=== PATIENT | female | born 1955 | race Caucasian/White ===

== ENCOUNTER 2018-11-20 19:09 | Emergency (ER) | payer MEDICAID, OTHER ==
[~2018-11-20] VITALS: Wt 65.5 kg
[~2018-11-20 19:09] MED LIST: ALBU8.5H8 INH; CYCL10TA7 PO; GUAI118L94 PO; HYDR-3498 PO; IBUP-1542 PO; SODI44SP11 NASAL
[2018-11-20] MEDS ORDERED: LORAZEPAM 1 MG TAB PO ONE (20:00)
--- NOTE | 2018-11-20 20:20 | ERD ---
ER Documentation Chief Complaint Chief Complaint Body numbness HPI This is a 63-year-old female who took a nap this afternoon when she woke about 10 minutes later she started feeling hot and she said her face felt very hot and burning. Then she states that her entire body started tingling. She said that she felt like she was going to . The son is in the room and said that she was having hand shaking and tremors with some hyperventilation. She has no focal neurological complaints. Denies any focal weakness. ROS All systems reviewed and are negative except as per history of present illness. Medications Home Meds Active Scripts Ibuprofen* (Motrin*) 600 Mg Tab, 600 MG PO Q6, #30 TAB Prov:ELÍAS GOETZ NP 11/04/15 Hydrocodone Bit-Acetaminophen* ([place]*) 5-325 Mg Tab, 1 TAB PO Q6 PRN for PAIN, #7 TAB Prov:ELÍAS GOETZ NP 11/04/15 Cyclobenzaprine Hcl* (Cyclobenzaprine Hcl*) 10 Mg Tablet, 10 MG PO TID, #15 TAB Prov:ELÍAS GOETZ NP 11/04/15 Sodium Chloride (Saline Nasal [place]) 45 Ml [place], 2 SPRAYS NASAL Q2H PRN for NASAL CONGESTION, #1 BOTTLE Prov:JESSICA BETHEA NP 09/21/15 Guaifenesin-Codeine Phosphate* (Guaifenesin* with Codeine Liq) 120 Ml Liquid, 5 ML PO Q4H for COUGH, #240 ML Prov:JESSICA BETHEA. 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 Neck: Full range of motion. No meningismus. Resp: Clear to auscultation bilaterally Cardio: Regular rate and rhythm, no murmurs Abd: Soft, non tender, non distended. Normal bowel sounds Skin: No petechiae or rashes Back: No midline or flank tenderness Ext: No cyanosis, or edema Neur: Awake and alert Psych: Normal Mood and Affect Results 24 hrs Current Medications Medications Dose Sig/Shi Start Time Status Last (Trade) Ordered Route PRN Stop Time Admin Dose Reason Admin Lorazepam 1 mg ONCE ONCE 11/20/18 DC 11/20/18 (Ativan) PO 20:00 11/20/18 19:39 20:01 Procedures/MDM EKG: Rate/Rhythm: Normal Sinus Rhythm,NL intervals QRS, ST, QT: NORMAL MI, QRS, QT] Impression: NORMAL EKG Patient got some Ativan and on reevaluation feels 100% better. The patient started taking Zoloft 3 days ago when she said yesterday she felt a glimmer of the symptoms but today was full on. She is likely having some type of drug reaction to the Zoloft. Not full on serotonin syndrome but may have some type of serotonin excess causing some of these symptoms. She has had anxiety attacks before but is been 17 years. She has [place] no focal neurological complaints and her NIH score is 0. She is feeling better now her discharge home Patient feels much better at this time, and vital signs are normal, symptoms have improved. I did give strict instructions to return to the ED if symptoms continue or worsen, patient will otherwise follow-up with primary care physician. Patient understood instructions and agreed to plan. Disclaimer: Inadvertent spelling and grammatical errors are likely due to EHR/dictation software use and do not reflect on the overall quality of patient care. Also, please note that the electronic time recorded on this note does not necessarily reflect the actual time of the patient encounter. Departure Diagnosis: Primary Impression: Anxiety Condition: Stable AMEE JERNIGAN DO Nov 20, 2018 20:20
[2018-11-20 20:57] VITALS: BP 145/80; PULSE 82; RESP 18
== END 2018-11-20 20:58 | disposition home or self-care (01) ==
LOC: E/R 19:09
DX: F41.9 Anxiety disorder, unspecified (principal); I10 Essential (primary) hypertension
CPT/HCPCS: 93005; Z7502; Z7610; 99283

== ENCOUNTER 2018-12-21 15:57 | Emergency (ER) | payer MEDICAID ==
[~2018-12-21] VITALS: Ht 154.9 cm; Wt 64.0 kg
[2018-12-21 16:07] VITALS: Ht 154.9 cm; Wt 64.0 kg
--- NOTE | 2018-12-21 20:13 | ERD ---
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 She states she has had similar symptoms in the past she denies slurred speech, no weakness in her arms or legs, no loss of consciousness, no chest pain or shortness of breath. Patient had a very similar episode here in the ER about 2 months ago that resolved after Ativan therapy. ROS All systems reviewed and are negative except as per history of present illness. Medications Home Meds Active Scripts Lorazepam* (Ativan*) 0.5 Mg Tablet, 0.5 MG PO Q8H PRN for ANXIETY, #10 TAB Prov:JUNIOR HWOARD MD 12/21/18 Ibuprofen* (Motrin*) 600 Mg Tab, 600 MG PO Q6, #30 TAB Prov:ELÍAS GOETZ NP 11/04/15 Hydrocodone Bit-Acetaminophen* ([place]*) 5-325 Mg Tab, 1 TAB PO Q6 PRN for PAIN, #7 TAB Prov:ELÍAS GOETZ NP 11/04/15 Cyclobenzaprine Hcl* (Cyclobenzaprine Hcl*) 10 Mg Tablet, 10 MG PO TID, #15 TAB Prov:ELÍAS GOETZ NP 11/04/15 Sodium Chloride (Saline Nasal [place]) 45 Ml [place], 2 SPRAYS NASAL Q2H PRN for NASAL CONGESTION, #1 BOTTLE Prov:JESSICA BETHEA NP 09/21/15 Guaifenesin-Codeine Phosphate* (Guaifenesin* with Codeine Liq) 120 Ml Liquid, 5 ML PO Q4H for COUGH, #240 ML Prov:JESSICA BETHEA NP 09/21/15 Albuterol Sulfate* (Proair HFA*) 8.5 Gm Hfa.aer.ad, 2 PUFF INH Q4H PRN for WHEEZING AND SOB, #1 INHALER Prov:JESSICA BETHEA NP 09/21/15 Allergies Allergies: Coded Allergies: Sulfa (Sulfonamide Antibiotics) (Verified Allergy, Unknown, 09/21/15) PMhx/Soc Anxiety, hypertension, asthma History of Surgery: No Anesthesia Reaction: No Hx Neurological Disorder: No Hx Respiratory Disorders: No Hx Cardiac Disorders: No (HTN, HLD) Hx Psychiatric Problems: Yes (Anxiety) Hx Miscellaneous Medical Probl: Yes (DM, DAMAGE LIGAMENT RT KNEE,) Hx Alcohol Use: No Hx Substance Use: No Hx Tobacco Use: No Smoking Status: Never smoker FmHx Family History: No diabetes Physical Exam Vitals Vital Signs Date Temp Pulse Resp B/P (MAP) Pulse Ox O2 O2 Flow FiO2 Time Delivery Rate 12/21/18 72 17 167/100 98 Room Air 20:17 (122) 12/21/18 73 17 169/97 99 Room Air 19:57 (121) 12/21/18 98.5 90 20 168/97 96 16:07 (120) Physical Exam GENERAL: Well-developed, well-nourished, well-hydrated, anxious, afebrile HEENT: Moist mucous membranes, pink conjunctiva, no cervical spine tenderness or step-off deformities, no goiter, no jaundice or icterus, extraocular movements intact without pain. NEURO: Alert and oriented 3, cranial nerves II through XII intact bilaterally, pupils equal round reactive to light, no focal deficits or facial asymmetry, sensation intact distally Strength 5/5 in upper and lower extremities bilaterally CARDIAC: Regular rate and rhythm, no murmurs rubs or gallops LUNGS: Clear bilaterally no wheezing crackles or stridor EXTREMITIES: No clubbing cyanosis or edema, calves are bilaterally symmetrical, no Homans sign, no popliteal cord sign. 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 Patient was afebrile EKG performed, read by me revealed a normal sinus rhythm at 75 bpm, normal axis, narrow QRS complex, no concerning ST elevations or depressions noted. Patient's initial blood pressure was elevated and she appeared anxious administered clonidine 0.1 mg p.o. and lorazepam 0.5 mg p.o. x1 Her symptoms were resolved after above therapy and blood pressure improved. Patient feels much better and will be discharged with prescriptions and recommendations for outpatient management. Differential diagnoses considered, included but not limited to acute coronary syndrome, pulmonary embolism, aortic dissection, abdominal aortic aneurysm, sepsis, stroke, meningitis, encephalitis, pneumonia, appendicitis, cholecystitis, bowel obstruction, pyelonephritis, nephrolithiasis, cystitis, as well as metabolic, hematologic, and electrolyte abnormalities. As well as abscess, cellulitis, fractures, and dislocations. Patient feels much better at this time, and vital signs are normal, symptoms have improved. I did give strict instructions to return to the ED if symptoms continue or worsen, patient will otherwise follow-up with primary care physician. Patient understood instructions and agreed to plan. Disclaimer: Inadvertent spelling and grammatical errors are likely due to EHR/dictation software use and do not reflect on the overall quality of patient care. Also, please note that the electronic time recorded on this note does not necessarily reflect the actual time of the patient encounter. Departure Diagnosis: Primary Impression: Acute anxiety Additional Impression: Hypertension Hypertension type: essential hypertension Qualified Codes: I10 - Essential (primary) hypertension Condition: JUNIOR Dick MD Dec 21, 2018 20:13
[2018-12-21] MEDS ORDERED: LORA-441 PO (20:14)
[2018-12-21] MEDS ORDERED: LORAZEPAM 0.5 MG TAB PO ONE (20:30)
[2018-12-21 20:50] VITALS: BP 149/94; PULSE 68; RESP 16
== END 2018-12-21 20:54 | disposition home or self-care (01) ==
LOC: E/R 15:57
DX: F41.9 Anxiety disorder, unspecified (principal); I10 Essential (primary) hypertension; E11.9 Type 2 diabetes mellitus without complications; J45.909 Unspecified asthma, uncomplicated
CPT/HCPCS: 93005; Z7502; Z7610; 99283